=== PATIENT | male | born 2000 | race Caucasian/White ===

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

== ENCOUNTER 2021-12-07 10:29 | Emergency (ER) | payer SELFPAY ==
[2021-12-07 10:36] VITALS: BMI 26.6
--- NOTE | 2021-12-07 10:46 | EXP.UTC ---
Discharge Plan Disposition Patient Disposition: Home, Self-Care Prescriptions Prescriptions: New ibuprofen [ibuprofen] 600 mg tablet 600 mg PO Q6HP PRN (Reason: Mild Pain) Qty: 30 0RF Referrals Follow up/Referrals: Eduardo Morrissey MD [Staff Physician] - See instructions Provider,MD Belkis [Primary Care Provider] - See instructions Activity Restrictions/Add. Instructions Additional Instructions/Restrictions: Rest the extremity, apply ice for 15 minutes as tolerated three or four times per day, Wear the po wrap for compression, Elevate the extremity as tolerated while you are resting. Take ibuprofen for pain. I sent in a prescription to your pharmacy. Follow up with Dr. Morrissey (orthopedics). Sometimes there can be fractures that don't show up well on the first set of x-rays. So, you should follow up if you continue to have symptoms. I put in a referral but you need to call his office and schedule an appointment. Follow up with your regular doctor. GO TO THE ER FOR ANY WORSENING SYMPTOMS Clinical Impressions Clinical Impression: Right wrist sprain, Wrist pain, right Stand Alone Forms Stand Alone Forms: Work/School Release Instructions Patient Instructions: Wrist Sprain, DI for Wrist Sprain Discharge ED Provider: Antonio Heredia [facility] General Stated complaint: [id number] right hand swollen Mode of Arrival: Ambulatory Source of Information: Patient Limitations: No Limitations Time Seen by Provider: 12/07/21 10:46 Description of Symptoms (Recalled from Triage Doc. by RN): pt c/o right wrist pain. pt states he fell off a ladder onto his wrist. pt c/o swelling and pain. History of Present Illness Provider Complaint: He states that he fell off of a ladder this morning and came down on his right forearm and right wrist. He fell approx 3 feet. He denies any other injury. Related Data Previous Rx's Medication Instructions Recorded ibuprofen 600 mg tablet 600 mg PO Q6HP PRN Mild Pain #30 12/07/21 tabs Allergies Allergy/AdvReac Type Severity Reaction Status Date / Time Sulfa (Sulfonamide Allergy Verified 12/07/21 10:59 Antibiotics) [facility] Social History Smoking Status: Never smoker alcohol intake: never current occupational status: employed Travel in the last 8 weeks: None ROS Obtained: Yes All systems reviewed & no additional complaints except as documented Constitutional Constitutional: Denies chills and Denies fever(s) Integumentary/Breasts Skin/Breast: Denies redness, Denies rash and Denies wounds Neurologic Neurologic: Denies paresthesias Physical Exam General General appearance: alert and in no apparent distress Head Head exam: atraumatic, normocephalic and normal inspection Eye Eye exam: Present normal appearance, PERRL and EOMI ENT ENT exam: Present normal exam, normal oropharynx, mucous membranes moist, TM's normal bilaterally and normal external ear exam Neck Neck exam: Present normal inspection, full ROM and trachea midline; Absent meningismus or lymphadenopathy Chest Chest inspection: Present normal inspection and symmetric chest wall rise; Absent tenderness Respiratory Respiratory exam: Present normal lung sounds bilaterally; Absent respiratory distress Cardiovascular Cardiovascular exam: Present regular rate and normal rhythm; Absent JVD Abdominal Exam Abdominal exam: Present soft and normal bowel sounds; Absent distention, tenderness or guarding Extremities Exam Extremities exam: Present normal capillary refill Expanded Upper Extremity Exam Right: Shoulder exam: Present normal inspection and full ROM; Absent tenderness Arm exam: Present normal inspection and full ROM; Absent tenderness Elbow exam: Present normal inspection and full ROM; Absent tenderness Forearm/Wrist exam: Present full ROM, tenderness and ecchymosis; Absent swelling, abrasion, laceration, deformity,
--- NOTE | 2021-12-07 10:47 | XR_ITS ---
FINAL REPORT CLINICAL HISTORY: fall FINDINGS: Right hand Three views were obtained. There is no acute fracture or dislocation. The joint spaces appear normal. No soft tissue abnormality is identified. IMPRESSION: No acute process. Reviewed, Interpreted and Dictated by Geovani Caruso III, MD Transcribed by Basilia Donaheu Authenticated and . [facility]
--- NOTE | 2021-12-07 10:47 | XR_ITS ---
FINAL REPORT CLINICAL HISTORY: fall FINDINGS: Right wrist Three views were obtained. There is no acute fracture or dislocation. The joint spaces appear normal. No soft tissue abnormality is identified. IMPRESSION: No acute process. Reviewed, Interpreted and Dictated by Geovani Caruso III, MD Transcribed by Basilia Donahue Authenticated and [facility]
--- NOTE | 2021-12-07 10:47 | XR_ITS ---
FINAL REPORT CLINICAL HISTORY: fall FINDINGS: Right forearm Two views were obtained. There is no acute fracture or dislocation. The joint spaces appear normal. No soft tissue abnormality is identified. IMPRESSION: No acute process. Reviewed, Interpreted and Dictated by Geovani Caruso III, MD Transcribed by Basilia Donahue Authenticated and [facility]
[2021-12-07 10:55] VITALS: BP 149/96; PULSE 93; RESP 18; TEMP 37.2; O2SAT 99; BMI 26.6
[2021-12-07 11:38] VITALS: BP 149/96; PULSE 93; RESP 18; TEMP 37.2
== END 2021-12-07 11:55 | disposition home or self-care (01) ==
PROVIDERS: Emergency Provider Nurse Practitioner Family
DX: S63.501A Unspecified sprain of right wrist, initial encounter; W11.XXXA Fall on and from ladder, initial encounter
CPT/HCPCS: 29126; 73090; 73110; 73130; 99213; G0463